=== PATIENT | female | born 1955 | race Caucasian/White ===

== ENCOUNTER 2018-05-15 12:00 | Inpatient (IN) ==
--- NOTE | 2018-05-15 08:56 | Discharge Summary ---
<Timi Dominguez - Last Filed: 05/15/18 08:55> Date of Encounter: 05/15/18 - Discharge Diagnosis (1) Arthritis of right knee Status: Acute (2) History of total right knee replacement Priority: Primary Status: Chronic - Hospital Course Hospital course: Ms. Watson is a 62 year old female - Time Spent with Patient Total time spent providing and/or coordinating discharge services: - Discharge Medications Home Medications: Ascorbate Calcium [Vitamin C] 500 mg PO DAILY 04/10/17 [History] Calcium Carbonate [Calcium] 600 mg PO DAILY 04/10/17 [History] Cholecalciferol (Vitamin D3) [Vitamin D3] 1,000 unit PO DAILY 04/10/17 [History] Cyanocobalamin (Vitamin B-12) [Vitamin B12] 1,000 mcg PO DAILY 04/10/17 [History ] Estradiol [Estrace] 0.5 mg PO DAILY 04/10/17 [History] Nitroglycerin 0.4 mg SL Q5MIN PRN 04/10/17 [History] Omeprazole [PriLOSEC] 20 mg PO DAILY 04/10/17 [History] Simvastatin [Zocor] 10 mg PO DAILY 04/10/17 [History] Vitamin E 200 unit PO DAILY 04/10/17 [History] Aspirin Enteric Coated [Aspirin EC] 325 mg PO BID #20 tablet.dr 05/15/18 [Rx] Cholecalciferol (D-3) [Vitamin D] 1,000 unit PO DAILY 05/15/18 [History] FLUoxetine HCl [Fluoxetine HCl] 60 mg PO DAILY 05/15/18 [History] Metoprolol Succinate [Kapspargo Sprinkle] 25 mg PO DAILY 05/15/18 [History] OxyCODONE Immed Rel [Roxicodone 5 MG] 5 mg PO Q6HR PRN 5 Days #20 tablet [Rx] Oxybutynin Chloride [Ditropan Xl] 10 mg PO DAILY 05/15/18 [History] Allergies/Adverse Reactions: 3 Allergy/AdvReac Type Severity Reaction Status Date / Time morphine Allergy Vomiting Verified 05/15/18 15:20 Primary care physician: Allison Brunson DO - Patient Status Disposition: Home Health Service Condition: Good - Discharge Instructions Follow Up With: Mulvany,Aliyah L, PAC [Physician Dividing Machine Operator Helper] - 05/22/18 2:00 pm Allison Brunson, DO [Primary Care Provider] - Additional Instructions: Discharge Instructions: Total Knee Replacement Please call [facility] ([phone]), your Primary Care Physician, or report to the Emergency Room if you have any of the following symptoms: Nausea, vomiting, fever greater that 101.5, swelling, chest pain, shortness of breath, increased pain/redness/drainage/odor for your incision site, numbness/ tingling, or any other concerning symptoms. ACTIVITY:Weight-bearing as tolerated. You may progress off support (crutches or walker) as tolerated. Incentive Spirometer 10 times an hour. MEDICATIONS: Upon discharge resume your home medications. Take all the medications as prescribed. Take a stool softener if taking narcotic pain medications. Stool softeners are only effective if you drink enough fluids. Drink 6-8 glass of water or fluids a day, unless this is not allowed for another health problem. Despite using stool softeners, if you haven't had a bowel movement in 3 days, please switch to a gentle laxative. Gentle laxatives are sold over the counter. You should have a bowel movement within 24 hours, if not call the office. You will be discharged from the hospital with a prescription for pain medication. You are encouraged to decrease the use of narcotic pain medication as tolerated. Should you require a refill, please call the office. [facility] prescribes narcotic pain medication for only 4-6 weeks after surgery. If you require pain medication beyond this time period, you may be referred to your Primary Care Physician or to the Pain Clinic for further evaluation. Plan ahead for refills on pain medication as many narcotics either need to be picked up at the office or mailed. It is best to call 48-72 hours in advance of needing a prescription refill so you don't run out of medication. To help control the post-operative pain, you may take NSAIDs (Aleve,Advil, Motrin, Ibuprofen, Naprosyn) or Tylenol as prescribed on the bottle in addition to the pain medication. ANTICOAGULATION (blood thinners): Continue your Aspirin, Lovenox or Coumadin as prescribed to help prevent a blood clot in the leg or in the lungs. As long as your incision remains dry and you tolerate the NSAIDs (Aleve, Advil, Motrin, ibuprofen, naprosyn), it is OK to use the NSAIDS while you are taking your anticoagulation medication. Should your incision start to drain, stop the NSAID and contact our office. Common symptoms of blood clot in the legs include: localized pain, swelling, calf tenderness, redness or discoloration of the skin. Blood clot in the lung symptoms include: shortness of breath, rapid pulse, sweating, and chest pain that worsens with deep breathing, coughing up blood, lightheadedness, feelings of anxiety. If you experience any of these symptoms notify your physician immediately, go to the emergency room, or if having trouble breathing, call 911. WOUND CARE: Leave the dressing on for 7 to 10days. You may change the dressing if it becomes saturated greater than 50%. Do not get the dressing wet at anytime. Wash your hands with antibacterial soap, rinse and dry prior to any wound care. If you have cindy the visiting nurse or rehab facility can remove the stapes 10-14 days after surgery and place steri-strips across the wound. Leave the steri-strips in place until they fall off on their won. You may let water from the shower run on top of the steri-strips. If you do not have a visiting nurse or rehab facility, you will need to return to the office at 10-14 days for the cindy to be removed. If you have itching or redness around the dressing call the office. FOLLOW-UP: Please follow up with your surgeon in the orthopedic clinic in 4 weeks from the day of surgery. If you have cindy that need to be removed, you will need to come back to the office in 10-14 days from the day of surgery. <Maria Del Rosario Mcgee - Last Filed: 05/19/18 16:41> - NOTES TO OUTPATIENT PROVIDER Notes to Outpatient Provider: Recheck potassium by home health nurse at next visit. Orders not resulted at time of discharge: Pending orders 05/15/18 13:12 US anesthesia pain block [US] Routine 05/15/18 18:01 Surgical Pathology [PTH] Routine Date of Encounter: 05/19/18 Time of Encounter: 09:01 - Discharge Diagnosis (1) History of total right knee replacement Priority: Primary Status: Chronic (2) Hypertension Priority: Secondary Status: Acute Qualifiers: Qualified Code(s): I10 - Essential (primary) hypertension (3) Tobacco use Priority: Secondary Status: Acute (4) GERD (gastroesophageal reflux disease) Priority: Secondary Status: Acute Qualifiers: Qualified Code(s): K21.9 - Gastro-esophageal reflux disease without esophagitis (5) Arthritis of right knee Priority: Secondary Status: Acute - Hospital Course Hospital course: Ms. Watson is a 62 year old female status post Right TKR robotic 05/15/18 with history of HTN, GERD, HLD, tobacco use. She participated in therapy. She had uneventful hospital course other than potassium did decrease to 2.9 at POD#1. She was given supplementation and it did increase to 3.0 the next day. Will continue to have this monitored on outpatient basis. Patient evaluated by Dr. Paniagua on 05/17/18 and deemed stable for discharge at that time. - Time Spent with Patient Total time spent providing and/or coordinating discharge services: Date of admission: 05/15/18 18:43 Primary care physician: Allison Brunson DO Consults: 05/15/18 18:45 Consult to Orthopedic Navigator [CONS] [CONS] Routine Consult to Physical Therapy [CONS] Routine Comment: Evaluate, develop and impliment POC Reason for Consult: post knee surgery Does patient have active BEDREST order?: No Is patient medically & hemodynamically stable?: Yes Consult to Oracle Programmer [CONS] Routine Reason for SW Consult: post op joint replacement RT Post Op Consult [CONS] Routine Discharging clinician: Timi Dominguez Anticipated date of discharge: 05/17/18 - Impressions ITS Impressions Knee X-Ray 05/15/18 15:53 IMPRESSION: Total knee arthropasty without acute hardware complication. D/ / Jorge Jensen MD / Jorge Jensen MD Interpreting Provider: Jorge Jensen MD - Patient Status Functional capacity at discharge: uses cane/walker Overall status at discharge: patient is back to baseline - Diet and Activity Activity: as per physical therapy Diet: advance to your usual diet
--- NOTE | 2018-05-15 11:12 | Anesthesia Evaluation PreOp ---
Date of Encounter: 05/15/18 Time of Encounter: 13:00 - Past History Planned Operation: Right Total Knee Arthroplasty Cardiac History: HTN Pulmonary History: Smoker (40 years) FORENSICS TEAM DIRECTOR History: Denies Any Significant HX Other Medical History: GERD, Other (depression) Anesthesia History: No Prior Anesthetic Complications, Past Anesthesia Alcohol Use: none Drug use: none Medications and Allergies Aspirin [Adult Low Dose Aspirin EC] 1 tab PO DAILY 11/28/15 [History] Ascorbate Calcium [Vitamin C] 500 mg PO DAILY 04/10/17 [History] Calcium Carbonate [Calcium] 600 mg PO DAILY 04/10/17 [History] Cholecalciferol (Vitamin D3) [Vitamin D3] 1,000 unit PO DAILY 04/10/17 [History] Cranberry Conc/Ascorbic Acid [Cranberry Plus Vitamin C Sftgl] 1 each PO DAILY [History] Cyanocobalamin (Vitamin B-12) [Vitamin B12] 1,000 mcg PO DAILY 04/10/17 [History ] Estradiol [Estrace] 0.5 mg PO DAILY 04/10/17 [History] Metoprolol Succinate 25 mg PO DAILY 04/10/17 [History] Nitroglycerin 0.4 mg SL Q5MIN PRN 04/10/17 [History] Omeprazole [PriLOSEC] 20 mg PO DAILY 04/10/17 [History] Potassium 99 mg PO DAILY 04/10/17 [History] Sertraline [Zoloft] 200 mg PO DAILY 04/10/17 [History] Simvastatin [Zocor] 10 mg PO DAILY 04/10/17 [History] Vitamin E 200 unit PO DAILY 04/10/17 [History] Aspirin Enteric Coated [Aspirin EC] 325 mg PO BID #20 tablet. 05/15/18 [Rx] OxyCODONE Immed Rel [Roxicodone 5 MG] 5 mg PO Q6HR PRN 5 Days #20 tablet [Rx] 3 Allergy/AdvReac Type Severity Reaction Status Date / Time morphine Allergy Vomiting Verified 05/24/15 11:45 - Meds/Allergy Pre-op Review Medications Reviewed: Yes Allergies Reviewed: Yes Beta Blockers on Current Med List: Yes If Beta Blockers taken, Date/Time (Last Dose taken): 05/15/2018 at 1300 Anesthesia Results - Labs Laboratory Tests 04/30/18 04/30/18 04/30/18 14:40 14:40 14:40 WBC 8.8 Hgb 14.7 Hct 41.2 Plt Count 191 PT 12.0 INR 1.1 APTT 34.5 Sodium 140 Potassium 3.0 L BUN 11 Creatinine 0.58 L - Imaging EKG: report reviewed (04/30/2018 SINUS RHYTHM POSSIBLE RIGHT VENTRICULAR CONDUCTION DELAY LEFT ANTERIOR FASCICULAR BLOCK LEFT VENTRICULAR HYPERTROPHY AND ST-T CHANGE POSSIBLE ANTERIOR MYOCARDIAL INFARCTION, OF INDETERMINATE AGE) Additional studies: 04/17/2017 Echo Impressions: LVEF 55-60%. Normal LV chamber size and function. Mild concentric left ventricular hypertrophy. Mild left ventricular diastolic dysfunction. Normal right ventricular structure and function. No evidence of pulmonary hypertension. No significant valvular dysfunction. 04/10/2017 LEFT HEART CATH Indications: Unstable Angina Impressions: Coronary arteries are angiographically normal. The left ventricle is normal and has normal contractility EF 55% Recommendations: Optimal medical therapy of patient's disease. Aggressive risk factor modification. Anesthesia Exam O2 Sat Height 1.73 m Height 1.73 m Height 1.73 m Weight 92.533 kg Weight 92.533 kg Weight 92.533 kg O2 Sat by Pulse Oximetry 95 O2 Sat by Pulse Oximetry 95 Vital Signs Temp Pulse Resp BP Pulse Ox 99.6 F 84 18 151/83 95 05/15/18 12:16 05/15/18 12:16 05/15/18 12:16 05/15/18 12:16 05/15/18 12:16 Height: 5'8'' Weight: 204 lbs NPO (# of Hours): 8 Pain Scale: 0 Pain Scale Used: Numeric (1 - 10) - HEENT Pupil (Motor): EOMI Mallampati: II Teeth: Edentulous Denture Type: Upper: Complete, Lower: Complete Oral Opening: Greater than 3 - FORENSICS TEAM DIRECTOR LOC: Oriented FORENSICS TEAM DIRECTOR Motor: Normal RUE, Normal LUE, Normal RLE, Normal LLE, Normal Face FORENSICS TEAM DIRECTOR Sensory: Normal: RUE, LUE, RLE, LLE, Face - Cardiac Rhythm: Regular Murmur: None - Pulmonary Breath Sounds: bilateral Clear Respiratory Effort: Symmetrical Anesthesia Assess/Plan ASA Score: 2 Modified Luis Scale for Level of Consciousness: Cooperative, oriented, and tranquil Anesthetic Plan: General, Regional Monitoring Plan: Standard Monitors Recovery Plan: PACU
[2018-05-15] MEDS ORDERED: Albuterol 2.5 MG/3 ML NEBULIZER IH ONE (12:36)
[2018-05-15] MEDS ORDERED: CeFAZolin Syr 2,000MG/20 ML 2,000 MG/20 ML SYRINGE IVPB ONE (12:36)
[2018-05-15] MEDS ORDERED: Ringers Solution, Lactated 1,000 ML IVC SCH (12:45)
[2018-05-15] MEDS ORDERED: Albuterol 2.5 MG/3 ML NEBULIZER ONE (13:00)
[2018-05-15] MEDS ORDERED: *HR* FentaNYL (PF) 100 MCG/2 ML VIAL ONE ×2 (13:52→16:38)
[2018-05-15] MEDS ORDERED: *HR* Midazolam HCl 2 MG/2 ML VIAL ONE (13:52)
[2018-05-15] MEDS ORDERED: Ondansetron 4 MG/2 ML VIAL ONE (13:52)
[2018-05-15] MEDS ORDERED: *HR* Propofol 200 MG/20 ML VIAL IVP ONE (15:24)
[2018-05-15] MEDS ORDERED: Lidocaine -MPF 2% 2 ML VIAL ONE (15:25)
[2018-05-15] MEDS ORDERED: *HR* HYDROmorphone (PF) 1 MG/ML SYRINGE IVP PRN (15:30)
[2018-05-15] MEDS ORDERED: *HR* OxyCODONE Immed Rel 5 MG TABLET PO PRN (15:30)
[2018-05-15] MEDS ORDERED: *HR* Labetalol 20 MG/4 ML SYRINGE IVP PRN (15:30)
[2018-05-15] MEDS ORDERED: *HR* Promethazine 25 MG/ML VIAL IVP PRN (15:30)
[2018-05-15] MEDS ORDERED: ROPIVACAINE HCL/PF 0.5% 30 ML VIAL ONE (15:36)
[2018-05-15] MEDS ORDERED: Bupivacaine/Clonidine Syringe 1 EACH SYRINGE ONE (15:36)
--- NOTE | 2018-05-15 15:53 | History & Physical Report ---
Date of Encounter: 05/15/18 Time of Encounter: 15:53 24 Hour HP Update - Instructions Instructions: If the History and Physical is less than 30 days old and was completed prior to A.M. admission and or procedure and has NOT been updated on calendar day of procedure please complete this update prior to performing procedure. - Update Patient reports changes in Medical Condition: No Changes in examination, assessment, or condition: No Changes in Medication: No Preop tests/diagnostics Reviewed: Yes Surgery Remains Indicated: Yes Consent for Planned Operative Procedure(s) Verified: Yes - Pre-Operative Checklist Preoperative Checklist Indicated: No Prophylactic Antibiotic Ordered: Yes Is VTE Prophylaxis Indicated?: Yes
[2018-05-15] MEDS ORDERED: Lidocaine -MPF 1% 5 ML AMPUL ONE (16:02)
[2018-05-15] MEDS ORDERED: Ethanol\\Acetic Acid\\Na Ace\\Ben 1,000 ML IRRIG.SOLN IR ONE (16:05)
--- NOTE | 2018-05-15 16:35 | Anesthesia Procedures ---
Date of Encounter: 05/15/18 Time of Encounter: 16:33 Procedures: Anesthesia - Epidural/Spinal Patient ID/Chart reviewed: Yes Patient examined: Yes Consent Obtained: Yes Supplemental Oxygen: Nasal Cannula Supplemental Oxygen Rate (L/min): 2 Sedation: Versed (mg): 2 Sedation: Fentanyl (mcg): 100 Site Prep: Aseptic Technique, Sterile prep and drape, Povidone-Iodine 1% Patient position: upright Local Anesthetic: Lidocaine 1% Amount of Local Anesthetic used: 3 Interspace Used: L4-L5 Blood: No CSF: Yes Paresthesia: No Spinal Needle Gauge: 25 (Pencan) Spinal Dose: 0.5% 2ml bupivacaine at 1412 Procedure: pt tolerated procedure well. no complications. vss. attempt x1 at L3/4 - slow csf flow, none on aspiration attempt x1 at L4/5 - positive csf flow, positive aspiration Vitals + FHT's: Vital Signs/O2 Sat/Glucose, Most Current Temp Pulse Resp BP Pulse Ox 05/15/18 16:21 64 16 134/65 94 05/15/18 16:05 67 18 128/69 94 05/15/18 16:03 99.6 F 84 18 151/83 95 05/15/18 12:45 18 95 - Nerve Block Procedure Date: 05/15/18 Time: 16:36 Allergies/Adv Reactions: morphine Surgical Procedure: right robotic tka Checklist: Correct Patient Identifier, Correct procedure, History checked Correct side: Right Blood Thinner: No Monitor Applied: EKG, BP, Pulse Oximetry Supplemental Oxygen via Nasal Cannula (L/min): 2 Indication: Post Op Analgesia (request per dr anthony for post op pain control) Pre-op Neuro Deficits: No Block Type: Other (adductor canal block, ipack) Sterile Technique: Yes Ultrasound used: Yes Anatomy identified: Yes Visual spread of Local: Yes Neuro Stimulation: No Blood on Needle Aspiration: No Smooth Injection of Local: Yes Pain with Injection of Local: No Prep: Chlorhexadine Needle: 22 x 50 mm Stimuplex (for acb), 21 x 100 mm Stimuplex (for ipack) Local: 0.25% Bupivicaine w/Clonidine 20 mcg/cc (for ipack 20ml), Ropivacaine ( 0.5% 30ml for acb) Volume (cc): 50 Number of Attempts: 1 Complications: None/effective block Vitals: Vital Signs/O2 Sat/Glucose, Most Current Temp Pulse Resp BP Pulse Ox 05/15/18 16:21 64 16 134/65 94 05/15/18 16:05 67 18 128/69 94 05/15/18 16:03 99.6 F 84 18 151/83 95 05/15/18 12:45 18 95 Comments: pt tolerated procedure well. no complications. vss.
[2018-05-15] MEDS ORDERED: Acetaminophen IV 1,000 MG/100 ML INFUS..BTL ONE (16:47)
[2018-05-15] MEDS ORDERED: EPHEDrine 50 MG/ML VIAL ONE (17:15)
--- NOTE | 2018-05-15 17:53 | Orthopedic Operative Note ---
Date of procedure: 05/15/18 Pre-op diagnosis: Knee arthritis right Post-op diagnosis: same Procedure: Procedure: Right robotic-assisted Total knee replacement Estimated blood loss: 200 cc Hardware: Metal and polyethylene replacement. [place] Femur: 3 Tibia: 3 TS insert: 9 Patella: 36 Exam Under anesthesia: 5 degrees hyperextension 6 degrees varus as calculated by the robot full flexion and no instability Procedural Notes: Grade 4 arthritic changes all 3 compartments. Operative procedure: The patient was brought to the operating room and placed on the operating room table. After general anesthesia was administered the operative knee was examined. Findings were noted in the exam under anesthesia. The operative extremity was prepped and draped in sterile surgical fashion. The patient received IV antibiotics prior to skin incision. A standard midline incision was made centered over the patella. The incision was made through the skin and subcutaneous tissue. A medial parapatellar tendon approach was performed. Care was taken to preserve tissue along the medial aspect of the patella. And to protect the patella tendon. The deep MCL was released off the medial tibia. The infra patella fat pad was excised. The patella was everted and cut was made at the level of the insertion of the quadriceps and patella tendon. The patella was sized the guide was seated and the lug holes are drilled. Knee was brought into flexion. Patient noted to have grade 4 arthritic changes all 3 compartments. Steinmann pins were placed in the tibia and the femur for the tibial and femoral arrays respectively. Checkpoints were also placed in the tibia and the femur for calculation purposes. The knee including the femur and the tibial registered. Osteophytes, ACL and PCL were excised at this point. Extension and flexion were assessed with a valgus stress components were adjusted on the computer to balance the knee. Femoral cuts were made first with robotic assistance, these included the anterior cut posterior cuts chamfer cuts. Tibial cut was then performed with robotic assistance as well. Bone fragments were removed, as well as the medial and lateral meniscus. The size 3 femoral guide was seated box cut was made lug holes are drilled. The size 3 tibial tray was seated and prepared with the fin cutter. Trial reduction with the 9 TS Makayla revealed extension of 0 degree and 4 degrees varus full flexion. No varus valgus instability. Trial reduction revealed excellent patella tracking. All trial components were removed all bony surfaces were irrigated. The Tibia was seated followed by the femur, The selected Makayla size was seated and secured patella. Patient had similar findings for motion and stability. The knee was then irrigated out with 2 L of pulse irrigation. The extensor mechanism was closed with #2 FiberWire suture and #2 PDS suture. The subcutaneous tissue was then irrigated and closed deep with #1 PDS suture superficially with 0 PDS suture and skin was closed with zip tie The patient was then placed in a sterile dressing and a postoperative brace extubated and transferred to recovery room in stable condition. Anesthesia: spinal Surgeon: Timi Dominguez Was there an assistant professor of biology present: No Estimated blood loss (cc): 200 Condition: stable Disposition: PACU
[2018-05-15] MEDS ORDERED: *HR* Enoxaparin 30 MG/0.3 ML SYRINGE SQ SCH (18:00)
--- NOTE | 2018-05-15 18:34 | Anesthesia Evaluation Post Op ---
Date of Encounter: 05/15/18 Time of Encounter: 18:30 - Vital Signs Vital Signs: Vital Signs/O2 Sat, Most Current Temp Pulse Resp BP Pulse Ox 97.9 F 67 16 121/65 96 05/15/18 18:30 05/15/18 18:30 05/15/18 18:30 05/15/18 18:30 05/15/18 18:30 - Lungs Lungs: Clear Ascult./Percussion - Airway Airway: Non-obstructed - Cardiovascular Regular Rate - Mental Status Mental Status: Alert & Oriented, Answers Appropriately - Pain Pain Scale: 0 Pain Scale used: Numeric (1 - 10) - Nausea Vomiting Nausea Vomiting: Not Present - Hydration Hydration: NPO, Has not voided - Discharge PostOp Status: Transfer Patient to floor
[2018-05-15 18:45] LABS: Hematocrit 35.3 % (35.3-44.9); Hemoglobin 12.2 g/dL (11.5-15.4)
[2018-05-15] MEDS ORDERED: Sennosides 8.6 MG TABLET PO PRN (18:45)
[2018-05-15] MEDS ORDERED: traMADol 50 MG TABLET PO PRN (18:45)
[2018-05-15] MEDS ORDERED: Naloxone 0.4 MG/ML INJ IVP PRN (18:45)
[2018-05-15] MEDS ORDERED: Nitroglycerin 0.4 MG TAB.SUBL SL PRN (18:45)
[2018-05-15] MEDS ORDERED: MOM Conc 10 ML UD.LIQ PO PRN (18:45)
[2018-05-15] MEDS ORDERED: Ondansetron 4 MG/2 ML VIAL IVP PRN (18:45)
[2018-05-15] MEDS: *HR* OxyCODONE Immed Rel 5 MG TABLET PO PRN (21:08)
[2018-05-15] MEDS: Ringers Solution, Lactated 1,000 ML IVC SCH (21:09)
[2018-05-15] MEDS: *HR* OxyCODONE/APAP 5/325 TABLET PO PRN (22:44)
[2018-05-16] MEDS: Temazepam 15 MG CAPSULE PO PRN ×2 (00:05→21:03)
[2018-05-16 01:06] LABS: Hematocrit 35.5 % (35.3-44.9); Hemoglobin 12.1 g/dL (11.5-15.4)
[2018-05-16 01:32] LABS: BUN/Creatinine Ratio 14 (6-26); Blood Urea Nitrogen 9 mg/dL (8-23); Calcium 9.1 mg/dL (8.6-10.3); Carbon Dioxide 27 mEq/L (23-29); Chloride 103 mEq/L (98-107); Glucose 182 mg/dL (70-105); Osmolality,Calculated 291 (280-300); Potassium 2.9 mEq/L (3.5-5.1); Sodium 139 mEq/L (136-145); eGFR For Non-African Americans > 60 (> 60)
[2018-05-16] MEDS: *HR* OxyCODONE Immed Rel 5 MG TABLET PO PRN ×4 (02:49→18:40)
[2018-05-16] MEDS: *HR* Enoxaparin 30 MG/0.3 ML SYRINGE SQ SCH ×2 (04:31→18:40)
[2018-05-16] MEDS: *HR* OxyCODONE/APAP 5/325 TABLET PO PRN ×2 (06:00→21:03)
--- NOTE | 2018-05-16 06:25 | Orthopedics Progress Note ---
Date of Encounter: 05/16/18 Time of Encounter: 06:24 - Assessment and Plan (1) Arthritis of right knee Current Visit: No Status: Acute (2) History of total right knee replacement Current Visit: No Status: Chronic Subjective Interval history: Patient was seen this morning doing well without complaints. Afebrile vital signs stable. Operative extremity: Neurovascularly intact Dressing clean dry and intact Calves nontender Assessment and plan: Continue with postoperative care Hematocrit 35.5 potassium 2.9 kdur po Objective Vital signs: Vital Signs Temp Pulse Resp BP Pulse Ox 05/16/18 03:45 98.5 F 68 16 116/67 96 05/15/18 23:09 97.4 F L 69 15 103/58 96 05/15/18 18:50 98 F 68 14 125/77 98 05/15/18 18:30 97.9 F 67 16 121/65 96 05/15/18 18:20 97.7 F 70 16 113/61 94 05/15/18 18:10 97.7 F 73 16 111/61 96 05/15/18 18:00 97.4 F L 72 16 96/56 93 05/15/18 16:42 58 18 99/51 96 05/15/18 16:37 60 16 96/50 94 05/15/18 16:21 64 16 134/65 94 05/15/18 16:05 67 18 128/69 94 05/15/18 16:03 99.6 F 84 18 151/83 95 05/15/18 12:45 18 95 05/15/18 12:16 99.6 F 84 18 151/83 95 Intake and Output 05/15/18 05/15/18 05/16/18 15:59 23:59 07:59 Intake Total 240 / 240 120 / 120 Output Total 200 / 200 0 / 0 Balance 40 / 40 120 / 120 Intake: IV Fluids 120 / 120 Ancef Syringe 2,000 MG/20 ML 2, 20 / 20 000 mg In 20 ml @ 200 mls/hr IVPB PREOP ONE Rx#:[id number] Ancef 2,000 MG In 0.9 % Sodium 100 / 100 Chloride 100 ML @ 200 mls/hr IVPB Q8HR EDU Rx#:[id number] Oral 240 / 240 0 / 0 Output: Urine 0 / 0 0 / 0 Estimated Blood Loss 200 / 200 Other: # Voids 1 Weight 92.533 kg 92.533 kg 96.3 kg Patient Weight 05/16/18 23:59 Weight 96.3 kg - Labs CBC & BMP: 05/16/18 00:35 05/16/18 00:35 Labs: Abnormal lab results Potassium 2.9 mEq/L (3.5-5.1) L 05/16/18 00:35 Glucose 182 mg/dL (70-105) H 05/16/18 00:35 Consult Discharge Plan - Plan Referrals: Allison Brunson DO [Primary Care Provider] -
[2018-05-16] MEDS: Ascorbic Acid 500 MG TABLET PO SCH (08:30)
[2018-05-16] MEDS: Cyanocobalamin (B-12) 1,000 MCG TABLET PO SCH (08:30)
[2018-05-16] MEDS: Metoprolol XL (24 HR) Succ 25 MG TAB.ER.24H PO SCH (08:30)
[2018-05-16] MEDS: Aspirin Enteric Coated 81 MG Tablet PO SCH (08:30)
[2018-05-16] MEDS: FLUoxetine 20 MG CAPSULE PO SCH (08:30)
[2018-05-16] MEDS: Cholecalciferol (D-3) 1,000 UNIT TABLET PO SCH (08:30)
[2018-05-16] MEDS ORDERED: NON-FORMULARY MEDICATION 1 EACH EACH (Cholecalciferol (Vitamin D3) [Vitamin D3] 1,000 UNIT PO SCH (09:00)
--- NOTE | 2018-05-16 16:15 | Event Note ---
Date of Encounter: 05/16/18 Time of Encounter: 12:10 PCR - POD#1 Right robotic-assisted Total knee replacement 05/15/18 Patient seen at bedside, without complaints. A&O x 3 Afebrile, vital signs stable. Dressings have some noted bleeding to middle and distal ends occurring this morning. Will continue to monitor. Labs reviewed. H/H12.35.5 - stable, asymptomatic K 2.9 - Dr. Dominguez ordered supplementation, will need to recheck tomorrow Pain control: adequate Participating in PT. All questions and concerns addressed. Educated on use of incentive spirometer. Encouraged ambulation and proper hydration. Patient educated on post-operative restrictions and post-operative care. Assessment and plan: Continue with postoperative care Discharge plan: Home with home health. possibly tomorrow if K improves
--- NOTE | 2018-05-16 16:18 | Physician Discharge Referral ---
Home Health/Hosp Referral Info Attending Provider: Alberto - Diagnosis (1) History of total right knee replacement Priority: Primary Status: Chronic (2) Hypertension Priority: Secondary Status: Acute (3) Tobacco use Priority: Secondary Status: Acute (4) GERD (gastroesophageal reflux disease) Priority: Secondary Status: Acute (5) Arthritis of right knee Priority: Primary Status: Acute - Respiratory Orders Smoking Cessation: Smoking cessation has been advised. For more information, call the [place] Tobacco Quit Line at 2-725-BUCV-NOW. - Diet/Nutrition Diet/Nutrition Orders: Regular - Activity Activity Orders: Ambulate, Chair - Services Needed Following services are medically necessary services: Nursing, Home Health Aide, Physical Therapy, Occupational Therapy Home Care Orders: Opsite dressing, leave intact until first post-operative visit. If dressing becomes >50% saturated, contact office, remove dressing and place appropriate dressing in its place. Do not allow for dressing to get wet. Zipline/[place] in place, plan to remove at post-operative day #14-16. Total Joint Precautions x 6 weeks Apply cold therapy wrap 3-6x/day for 20 minutes at a time. Encourage ambulation throughout the day Use Incentive spirometer 10x/hour. Elevate affected extremity above heart as tolerated. Brace: Wear knee immobilizer at night x 2 weeks.~ - Transfer Medications Prescriptions: Aspirin Enteric Coated [Aspirin EC] 325 mg PO BID #20 tablet. Home Medications: Ascorbate Calcium [Vitamin C] 500 mg PO DAILY 04/10/17 [History] Calcium Carbonate [Calcium] 600 mg PO DAILY 04/10/17 [History] Cholecalciferol (Vitamin D3) [Vitamin D3] 1,000 unit PO DAILY 04/10/17 [History] Cyanocobalamin (Vitamin B-12) [Vitamin B12] 1,000 mcg PO DAILY 04/10/17 [History ] Estradiol [Estrace] 0.5 mg PO DAILY 04/10/17 [History] Nitroglycerin 0.4 mg SL Q5MIN PRN 04/10/17 [History] Omeprazole [PriLOSEC] 20 mg PO DAILY 04/10/17 [History] Simvastatin [Zocor] 10 mg PO DAILY 04/10/17 [History] Vitamin E 200 unit PO DAILY 04/10/17 [History] Aspirin Enteric Coated [Aspirin EC] 325 mg PO BID #20 tablet. 05/15/18 [Rx] Aspirin [Adult Aspirin Regimen] 81 mg PO DAILY 05/15/18 [History] Cholecalciferol (D-3) [Vitamin D] 1,000 unit PO DAILY 05/15/18 [History] FLUoxetine HCl [Fluoxetine HCl] 60 mg PO DAILY 05/15/18 [History] Metoprolol Succinate [[place] Sprinkle] 25 mg PO DAILY 05/15/18 [History] OxyCODONE Immed Rel [Roxicodone 5 MG] 5 mg PO Q6HR PRN 5 Days #20 tablet [Rx] Oxybutynin Chloride [Ditropan Xl] 10 mg PO DAILY 05/15/18 [History] Aspirin Enteric Coated [Aspirin EC] 325 mg PO BID #20 tablet. 05/16/18 [Rx] Allergies/Adverse Reactions: 3 Allergy/AdvReac Type Severity Reaction Status Date / Time morphine Allergy Vomiting Verified 05/15/18 15:20 Certification: Further, I certify that my clinical findings support that this patient is homebound (i.e. absences from home require considerable and taxing effort and are for medical reasons or hoahaoism services or infrequently or short duration when for other reasons) because: Homebound Reason: Post-surgery restriction and or conditions limit ability to leave home Attestation: My signature below is to certify that this patient is under my care and that I, or nurse practitioner, or a physician dental assistant working with me, has a face-to- face encounter with this patient.
[2018-05-16] MEDS: Ringers Solution, Lactated 1,000 ML IVC SCH (18:43)
[2018-05-17 01:00] LABS: Hematocrit 31.1 % (35.3-44.9); Hemoglobin 10.7 g/dL (11.5-15.4)
[2018-05-17 01:16] LABS: BUN/Creatinine Ratio 11 (6-26); Blood Urea Nitrogen 6 mg/dL (8-23); Calcium 9.3 mg/dL (8.6-10.3); Carbon Dioxide 28 mEq/L (23-29); Chloride 101 mEq/L (98-107); Glucose 180 mg/dL (70-105); Osmolality,Calculated 286 (280-300); Sodium 137 mEq/L (136-145); eGFR For Non-African Americans > 60 (> 60)
[2018-05-17] MEDS: Ringers Solution, Lactated 1,000 ML IVC SCH (02:31)
[2018-05-17] MEDS: *HR* OxyCODONE/APAP 5/325 TABLET PO PRN (04:12)
[2018-05-17] MEDS: *HR* Enoxaparin 30 MG/0.3 ML SYRINGE SQ SCH (05:40)
[2018-05-17] MEDS: *HR* OxyCODONE Immed Rel 5 MG TABLET PO PRN (09:15)
[2018-05-17] MEDS: Cholecalciferol (D-3) 1,000 UNIT TABLET PO SCH (09:16)
[2018-05-17] MEDS: Aspirin Enteric Coated 81 MG Tablet PO SCH (09:16)
[2018-05-17] MEDS: Metoprolol XL (24 HR) Succ 25 MG TAB.ER.24H PO SCH (09:16)
[2018-05-17] MEDS: FLUoxetine 20 MG CAPSULE PO SCH (09:16)
[2018-05-17] MEDS: Ascorbic Acid 500 MG TABLET PO SCH (09:16)
[2018-05-17] MEDS: Cyanocobalamin (B-12) 1,000 MCG TABLET PO SCH (09:16)
--- NOTE | 2018-05-17 10:04 | Orthopedics Progress Note ---
Date of Encounter: 05/17/18 Time of Encounter: 10:02 Subjective Interval history: Patient was seen this morning doing well without complaints. Afebrile vital signs stable. Operative extremity: Neurovascularly intact Dressing clean dry and intact Calves nontender Assessment and plan: Continue with postoperative care D/c to home today Objective Vital signs: Vital Signs Temp Pulse Resp BP Pulse Ox 05/17/18 09:14 98.2 F 76 16 138/67 98 05/17/18 02:25 99.5 F 76 17 145/66 96 05/16/18 22:52 99.4 F 75 18 132/74 94 05/16/18 18:53 99.1 F 72 16 135/69 98 05/16/18 18:43 99.4 F 97 16 204/95 95 05/16/18 16:26 98.5 F 72 16 128/70 96 Intake and Output 05/16/18 05/17/18 05/17/18 23:59 07:59 15:59 Intake Total 1011 / 1011 558 / 558 Output Total 125 / 125 400 / 400 Balance 886 / 886 158 / 158 Intake: IV Fluids 621 / 621 558 / 558 Lactated Ringers 1,000 ML @ 75 621 / 621 558 / 558 mls/hr IVC .[id number] EDU Rx#: [id number] Oral 390 / 390 Output: Urine 0 / 0 400 / 400 Catheter 125 / 125 Other: Meal Dinner Percent of Meal Consumed 75% # Voids 1 1 - Labs CBC & BMP: 05/17/18 00:37 05/17/18 00:37 Labs: Abnormal lab results Hgb 10.7 g/dL (11.5-15.4) L 05/17/18 00:37 Hct 31.1 % (35.3-44.9) L 05/17/18 00:37 Potassium 3.0 mEq/L (3.5-5.1) L 05/17/18 00:37 BUN 6 mg/dL (8-23) L 05/17/18 00:37 Creatinine 0.54 mg/dL (0.60-1.20) L 05/17/18 00:37 Glucose 180 mg/dL (70-105) H 05/17/18 00:37 Consult Discharge Plan - Plan Referrals: Allison Brunson DO [Primary Care Provider] - Prescriptions: Aspirin Enteric Coated [Aspirin EC] 325 mg PO BID #20 tablet.
[2018-05-17 23:00] VITALS: BP 121/69
== END 2018-05-17 11:20 | disposition home health service (06) | DRG 302 ==
LOC: SAMDAY 12:00 → 3NENU 18:43
PROVIDERS: ADMIT Orthopaedic Surgery; ATTEND Orthopaedic Surgery